=== PATIENT | female | born 1980 | race Caucasian/White ===

== ENCOUNTER 2016-11-11 12:05 | Emergency (ER) | payer OTHER ==
[~2016-11-11 12:05] MED LIST: ALBUTEROL17 GM INH; AMOXICILLIN500 M1 PO; ANTIVERT PO; ASPIRIN PO; FLEXERIL10 M1 PO; HCTZ PO; LOPRESSOR PO; NAPROSYN500 MG PO; NO MEDICATIONS; PREDNISONE PO; TESSALON200 MG PO; TYLENOL #3 PO; ULTRAM PO; VOLTAREN50 MG PO; ZITHROMAX PO
== END 2016-11-11 12:50 | disposition home or self-care (01) ==
LOC: SED 12:05
DX: B34.9 Viral infection, unspecified (principal); R03.0 Elevated blood-pressure reading, without diagnosis of hypertension; F17.200 Nicotine dependence, unspecified, uncomplicated; Z88.8 Allergy status to other drugs, medicaments and biological substances
CPT/HCPCS: 87651; 99282